=== PATIENT | male | born 1990 ===

== ENCOUNTER 2024-01-16 15:29 | Emergency (ER) | payer OTHER ==
[~2024-01-16] VITALS: Ht 167.6 cm; Wt 88.5 kg
[~2024-01-16 15:29] MED LIST: CYCL10 PO; HYDACE5325 PO; NAPR500 PO
== END 2024-01-16 16:25 | disposition home or self-care (01) ==
LOC: ER 15:29
DX: L08.9 Local infection of the skin and subcutaneous tissue, unspecified (principal); F17.210 Nicotine dependence, cigarettes, uncomplicated
CPT/HCPCS: 99282